=== PATIENT | male | born 1965 | race Caucasian/White ===

== ENCOUNTER 2017-08-06 10:23 | Emergency (ER) | payer OTHER, MEDICAID ==
[~2017-08-06] VITALS: Ht 165.1 cm; Wt 122.5 kg
[2017-08-06 10:26] VITALS: BP 140/90
[2017-08-06] MEDS ORDERED: KETOROLAC 30 MG/ML VIAL IVP ONE (10:40)
--- NOTE | 2017-08-06 10:45 | NUR ---
52m bib family with c/o 8/10 "sharp" non radiating intermittent bl upper abd pain x 1wk. Pt denies any n/v/d or fevers. Pt is aox4. Pt with right side paralysis d/t cva 2013. RR are even and unlabored. Skin warm/pink/dry. Pt positioned to comfort, bed down. NAD. Awaiting for er md mary. Will continue to monitor.
[2017-08-06] MEDS ORDERED: KETOROLAC 60 MG/2 ML VIAL IM ONE (10:50)
--- NOTE | 2017-08-06 10:50 | NUR ---
er md tomlin by bedside examining pt
--- NOTE | 2017-08-06 10:52 | NUR ---
pt refused IV start; er md tomlin made aware
--- NOTE | 2017-08-06 10:54 | NUR ---
lab by bedside
--- NOTE | 2017-08-06 11:03 | NUR ---
pt to ct via herminio accompanied by radiology teacher
[2017-08-06 11:06] LABS: HEMOGLOBIN 16.5 g/dL (12.0-18.0); WHITE BLOOD COUNT (AUTO) 9.6 K/uL (4.8-10.8)
[2017-08-06 11:14] LABS: HEMATOCRIT 49.6 % (36-52); MEAN CORPUSCULAR HEMOGLOBIN 30 pg (27-31); MEAN CORPUSCULAR HGB CONC 33 g/dL (33-37); MEAN CORPUSCULAR VOLUME 89 fL (80-94); PLATELET COUNT (AUTO) 194 K/uL (140-450); RED BLOOD CELL COUNT(AUTO) 5.55 MIL/uL (4.20-6.10); RED CELL DISTRIBUTION WIDTH 13.5 % (11.6-13.7)
[2017-08-06 11:17] LABS: ANION GAP 12.2 (8-16); CARBON DIOXIDE 28.6 mmol/L (21-32); CREATININE 0.7 mg/dL (0.7-1.3); POTASSIUM 3.8 mmol/L (3.5-5.1)
--- NOTE | 2017-08-06 11:20 | NUR ---
pt returned from ct via gurney accompanied by sound engineering technician
[2017-08-06 11:23] LABS: TOTAL BILIRUBIN 1.2 mg/dL (0.0-1.0)
[2017-08-06 11:47] LABS: BASOPHILS # (AUTO) 0.2 K/uL (0.00-0.22); BASOPHILS % (AUTO) 2.3 % (0.0-2.0); EOSINOPHILS # (AUTO) 0.2 K/uL (0-0.4); EOSINOPHILS % (AUTO) 2.1 % (0.0-4.0); LYMPHOCYTES # (AUTO) 1.5 K/uL (2.0-11.5); LYMPHOCYTES % (AUTO) 15.4 % (20.5-51.1); MONOCYTES # (AUTO) 1.1 K/uL (0.8-1.0); MONOCYTES % (AUTO) 11.6 % (1.7-9.3); NEUTROPHILS # (AUTO) 6.6 K/uL (1.8-7.7); NEUTROPHILS % (AUTO) 68.6 % (42.2-75.2)
[2017-08-06 12:44] VITALS: BP 105/65
--- NOTE | 2017-08-06 12:44 | NUR ---
Patient discharged with v/s stable. Written and verbal after care instructions given and explained. Patient alert, oriented and verbalized understanding of instructions. Ambulatory with steady gait. All questions addressed prior to discharge. ID band removed. Patient advised to follow up with PMD. Rx of Norwood #5 given. Patient educated on indication of medication including possible reaction and side effects. Opportunity to ask questions provided and answered.
== END 2017-08-06 12:44 | disposition home or self-care (01) ==
LOC: MED 10:23
DX: R10.84 Generalized abdominal pain (principal); Z86.73 Personal history of transient ischemic attack (TIA), and cerebral infarction without residual deficits; Z90.49 Acquired absence of other specified parts of digestive tract
CPT/HCPCS: 36415; 74176; 80053; 83690; 85025; 96372; 99285; J1885

== ENCOUNTER 2018-03-16 09:25 | Emergency (ER) | payer OTHER, MEDICAID ==
[~2018-03-16] VITALS: Ht 165.1 cm; Wt 131.5 kg
[2018-03-16 09:37] VITALS: BP 116/67
--- NOTE | 2018-03-16 09:40 | NUR ---
PT PRESENTS TO ED W C/O THROBBING HEADACHE X 0400 THIS MORNING. PT REPORTS HISTORY OF CVA WITH RIGHT SIDED DEFICIT AND SLURRED SPEECH. PT DENIES LIGHT SENSITIVTY, VISUAL DISTURBANCES, N/V, SOB, AND DIZZINESS. MOTHER OF PT REPORTS GIVING IBUPROFEN WITH NO RELIEF. PT TALKATIVE AND MAKING JOKES, PT PLACED ON ALL MONITORS, VSS. AT BEDSIDE TO VI.
[2018-03-16] MEDS ORDERED: diphenhydrAMINE 50 MG/ML VIAL IM ONE (10:00)
[2018-03-16] MEDS ORDERED: PROCHLORPERAZINE 10 MG/2 ML VIAL IM ONE (10:00)
[2018-03-16] MEDS ORDERED: PROCHLORPERAZINE 10 MG/2 ML VIAL ONE (10:11)
[2018-03-16] MEDS ORDERED: diphenhydrAMINE 50 MG/ML VIAL ONE (10:11)
--- NOTE | 2018-03-16 11:08 | NUR ---
PT SLEEPING COMFORTABLY. PT REPORTS PAIN AT 2/10. NO COMPLAINTS AT THIS TIME. PT ON MONITOR WITH VSS. WILL CONTINUE TO MONITOR.
[2018-03-16 11:33] VITALS: BP 103/69
--- NOTE | 2018-03-16 11:34 | NUR ---
Patient discharged with v/s stable. Written and verbal after care instructions given and explained. Patient alert, oriented and verbalized understanding of instructions. Wheel Chair Assisted with to home. All questions addressed prior to discharge. ID band removed. Patient advised to follow up with PMD. Rx of TRAMADOL, XANAX given. Patient educated on indication of medication including possible reaction and side effects. Opportunity to ask questions provided and answered.
== END 2018-03-16 11:34 | disposition home or self-care (01) ==
LOC: MED 09:25
DX: G47.00 Insomnia, unspecified (principal); G44.209 Tension-type headache, unspecified, not intractable; I10 Essential (primary) hypertension; Z86.73 Personal history of transient ischemic attack (TIA), and cerebral infarction without residual deficits
CPT/HCPCS: 96372; 99284; J0780; J1200

== ENCOUNTER 2018-10-19 23:27 | Emergency (ER) | payer OTHER, MEDICAID ==
[~2018-10-19] VITALS: Ht 165.1 cm; Wt 113.4 kg
[2018-10-19 23:36] VITALS: BP 150/90
--- NOTE | 2018-10-19 23:36 | NUR ---
TO BED # 11 VIA W/C, REPORT GIVEN TO MARKUS CARPIO
--- NOTE | 2018-10-19 23:40 | NUR ---
PT CAME INTO ER WITH C/O ABDOMINAL PAIN X 1 DAY. PT DENIES N/V/D. PT HAS HX OF STROKE-5 YRS AGO, DM AND HTN. PT HAS RIGHT SIDE WEAKNESS. PT STATES HE HAS DIFFICULTY FEELING THE PALPATION TO ABDOMEN DUE TO THE RIGHT RIGHT WEAKNESS. PT IS A/OX 4. ER MD MADE AWARE OF STATUS. SAFETY PRECAUTIONS IN PLACE, BED SIDE RAILS UP X 1. MOM AT BEDSIDE.
--- NOTE | 2018-10-20 00:50 | NUR ---
PT WAS UNABLE TO URINATE INDEPENDANTLY DUE TO INCONTINENCE. PT WAS STRAIGHT CATH. U/A SPECIMEN WAS COLLECTED. PT TOLERATED WELL.
[2018-10-20] MEDS ORDERED: MORPHINE SULFATE 4 MG/ML SYR IVP ONE (01:10)
[2018-10-20 01:12] LABS: APPEARANCE,URINE CLEAR (CLEAR); BILIRUBIN,URINE NEGATIVE (NEGATIVE); BLOOD, URINE NEGATIVE (NEGATIVE); COLOR,URINE YELLOW (YELLOW); LEUKOCYTE ESTERASE ,URINE NEGATIVE (NEGATIVE); NITRITE, URINE NEGATIVE (NEGATIVE); PH,URINE 6.5 (5.0-9.0); UGLUCOSE TRACE (NEGATIVE)
[2018-10-20 01:13] LABS: BASOPHILS # (AUTO) 0.1 K/uL (0.00-0.22); EOSINOPHILS # (AUTO) 0.2 K/uL (0-0.4); EOSINOPHILS % (AUTO) 1.8 % (0.0-4.0); HEMATOCRIT 45.7 % (36-52); HEMOGLOBIN 15.7 g/dL (12.0-18.0); LYMPHOCYTES # (AUTO) 0.9 K/uL (2.0-11.5); MEAN CORPUSCULAR HEMOGLOBIN 31 pg (27-31); MEAN CORPUSCULAR HGB CONC 34 g/dL (33-37); MEAN CORPUSCULAR VOLUME 91.3 fL (80-94); MONOCYTES % (AUTO) 10.5 % (1.7-9.3); NEUTROPHILS # (AUTO) 7.6 K/uL (1.8-7.7); NEUTROPHILS % (AUTO) 77.4 % (42.2-75.2); PLATELET COUNT (AUTO) 192 K/uL (140-450); RED BLOOD CELL COUNT(AUTO) 5.01 MIL/uL (4.20-6.10); RED CELL DISTRIBUTION WIDTH 14.7 % (11.6-13.7); WHITE BLOOD COUNT (AUTO) 9.9 K/uL (4.8-10.8)
[2018-10-20 01:23] LABS: ANION GAP 10.3 (8-16); CARBON DIOXIDE 26.4 mmol/L (21-32); CREATININE 0.6 mg/dL (0.7-1.3); POTASSIUM 3.7 mmol/L (3.5-5.1)
[2018-10-20 01:24] LABS: RBC,URINE 0-5 /HPF (0-5); WBC,URINE 0-5 /HPF (0-5)
[2018-10-20 01:28] LABS: ALBUMIN 3.2 g/dL (3.4-5.0); TOTAL BILIRUBIN 0.9 mg/dL (0.0-1.0)
[2018-10-20 01:37] LABS: LYMPHOCYTES % (AUTO) 9.3 % (20.5-51.1)
[2018-10-20 02:30] VITALS: BP 150/90
--- NOTE | 2018-10-20 02:30 | NUR ---
Patient discharged with v/s stable. Written and verbal after care instructions given and explained. Patient alert, oriented and verbalized understanding of instructions. Wheel Chair Assisted with by caregiver. All questions addressed prior to discharge. ID band removed. Patient advised to follow up with PMD. Rx of NORCO WAS given. Patient educated on indication of medication including possible reaction and side effects. Opportunity to ask questions provided and answered.
--- NOTE | 2018-10-20 02:30 | NUR ---
Note undone in EDM - 10/20/18 at 0237 by [email or web address] Patient discharged with v/s stable. Written and verbal after care instructions given and explained. Patient alert, oriented and verbalized understanding of instructions. [g ED.DCMODE] with [g ED.D/CMODE]. All questions addressed prior to discharge. ID band removed. Patient advised to follow up with PMD. Rx of [] given. Patient educated on indication of medication including possible reaction and side effects. Opportunity to ask questions provided and answered.
== END 2018-10-20 02:30 | disposition home or self-care (01) ==
LOC: MED 23:27
DX: R10.31 Right lower quadrant pain (principal); E11.9 Type 2 diabetes mellitus without complications; I10 Essential (primary) hypertension; Z98.890 Other specified postprocedural states; Z86.73 Personal history of transient ischemic attack (TIA), and cerebral infarction without residual deficits
CPT/HCPCS: 36415; 74176; 80053; 81001; 83690; 85025; 96374; 99284; J2270

== ENCOUNTER 2019-08-19 17:19 | Emergency (ER) | payer OTHER, MEDICAID ==
[~2019-08-19] VITALS: Ht 165.1 cm; Wt 109.3 kg
--- NOTE | 2019-08-19 17:23 | NUR ---
Patient transferred to bed 3 via wheelchair by tech. RN evaluating patient at bedside.
--- NOTE | 2019-08-19 17:25 | NUR ---
Dr. Park is evaluating the patient at bedside.
[2019-08-19 17:27] VITALS: BP 159/89
--- NOTE | 2019-08-19 17:31 | NUR ---
Called [facility].
--- NOTE | 2019-08-19 17:33 | NUR ---
Patient taken to CT scan via gurney by manohar, accompanied by RN.
--- NOTE | 2019-08-19 17:43 | NUR ---
Patient returned from CT scan. RN re-evaluating patient at bedside.
[2019-08-19] MEDS ORDERED: methylPREDNISolone SS 125 MG/2 ML VIAL IM ONE (17:45)
--- NOTE | 2019-08-19 18:10 | NUR ---
REPORT WAS CALLED AND GIVEN TO KIMMIE CARPIO/PVALANNA. ETA LESS THAN 10 MINUTES. AMBULANCE WILL COME TO PICKUP PT.
--- NOTE | 2019-08-19 18:18 | NUR ---
AMBULANCE CAME TO LOAD PT RIGHT NOW.
[2019-08-19 18:19] VITALS: BP 144/94
--- NOTE | 2019-08-19 18:21 | NUR ---
PT WAS BROUGHT OUT ED TO [facility] [place].
== END 2019-08-19 18:21 | disposition short-term general hospital (02) ==
LOC: MED 17:19
DX: R29.810 Facial weakness (principal); E11.9 Type 2 diabetes mellitus without complications; I10 Essential (primary) hypertension; Z86.73 Personal history of transient ischemic attack (TIA), and cerebral infarction without residual deficits; Z98.890 Other specified postprocedural states
CPT/HCPCS: 70450; 96372; 99285; J2930